=== PATIENT | female | born 1995 | race Hispanic/Latino ===

== ENCOUNTER 2022-09-16 04:50 | Inpatient (IN) | payer BC ==
[2022-09-16 05:20] VITALS: BMI 24.5
[2022-09-16] MEDS ORDERED: Bupivacaine PF 0.5% 30 ML VIAL ONE (08:00)
[2022-09-16] MEDS ORDERED: Lidocaine 2% PF 5 ML VIAL ONE (08:00)
[2022-09-16] MEDS ORDERED: Lactated Ringer's 1,000 ML IV PRN (08:32)
[2022-09-16] MEDS ORDERED: HYDROcodone/Acetaminophen 5/325 mg Tablet PO PRN ×2 (08:32)
[2022-09-16] MEDS ORDERED: Carboprost 250 MCG/ML AMP IM PRN (08:32)
[2022-09-16] MEDS ORDERED: Ondansetron PF 4 MG/2 ML Vial IVP PRN ×2 (08:32→19:13)
[2022-09-16] MEDS ORDERED: Methylergonovine 0.2 MG/ML VIAL IM PRN (08:32)
[2022-09-16] MEDS ORDERED: Butorphanol Tartrate 1 MG/ML VIAL SLOW IVP PRN (08:32)
[2022-09-16] MEDS ORDERED: Lidocaine 1% (PF) 30 ML VIAL SC PRN (08:32)
[2022-09-16] MEDS ORDERED: Misoprostol 200 MCG TAB PR PRN (08:32)
[2022-09-16] MEDS ORDERED: Ibuprofen 800 MG TAB PO PRN (08:32)
[2022-09-16] MEDS ORDERED: hydrALAZINE 20 MG/ML VIAL SLOW IVP PRN (08:32)
[2022-09-16] MEDS ORDERED: Promethazine HCl 25 MG/ML VIAL IM PRN ×2 (08:32→19:13)
[2022-09-16] MEDS ORDERED: Diphenoxylate HCl/Atropine Tablet PO PRN ×2 (08:32)
[2022-09-16] MEDS ORDERED: NS w/ Oxytocin 30 units 500 ML IV SCH (08:45)
[2022-09-16 09:31] LABS: Hemoglobin 11.2 g/dL (12.0-15.5); Mean Corpuscular HGB CONC 35.2 g/dL (32.0-36.0); Mean Corpuscular Hemoglobin 30.3 pg (27.0-33.0); Mean Corpuscular Volume 85.9 fl (81.6-98.3); Platelet Count 222 10x3/uL (150-450); RBC Distribution Width 12.6 % (11.5-14.5); White Blood Cell (WBC) Count 14.8 10x3/uL (3.5-10.5)
[2022-09-16 10:00] LABS: Syphilis Antibody Nonreactive (Nonreactive); Syphilis Antibody Index 0.04 S/CO (<1.00 Non-Reactive)
[2022-09-16 10:02] LABS: HBSAg Index 0.18 S/CO (0-0.99); Hep B Surf Ag Non-Reactive S/CO (NonReactive)
[2022-09-16 10:32] LABS: SARS-CoV-2 NAA Rapid Test Not Detected (NotDetected)
[2022-09-16] MEDS ORDERED: Fentanyl 2 mcg/Bup 0.1% Cadd 100 ML ONE (18:34)
[2022-09-16] MEDS ORDERED: ePHEDrine Sulfate 50 MG/10 ML VIAL SLOW IVP PRN (19:13)
[2022-09-16] MEDS ORDERED: Acetaminophen 325 MG TAB PO PRN (19:13)
[2022-09-16] MEDS ORDERED: Naloxone HCl 0.4 mg/ml Vial IVP PRN ×2 (19:13)
[2022-09-16] MEDS ORDERED: Lactated Ringer's 500 ML IV PRN (19:13)
[2022-09-16] MEDS ORDERED: diphenhydrAMINE 50 MG/ML VIAL IVP PRN (19:13)
[2022-09-16] MEDS ORDERED: Moisturizing Cream (Eucerin) 113 GM JAR TOP PRN (19:13)
[2022-09-16] MEDS ORDERED: Fentanyl 2 mcg/Bupivacaine 0.1% Cassette 100 ML EPIDURAL SCH (19:15)
[2022-09-16] MEDS ORDERED: Communication Order-Pharmacy FS SCH (19:15)
[2022-09-17] MEDS ORDERED: HYDROcodone/Acetaminophen 5/325 mg Tablet PO PRN ×2 (00:59)
[2022-09-17] MEDS ORDERED: Boostrix 0.5 ML (Tdap) VIAL (>/=7 yrs of age) IM ONE (00:59)
[2022-09-17] MEDS ORDERED: hydrALAZINE 20 MG/ML VIAL SLOW IVP PRN (00:59)
[2022-09-17] MEDS ORDERED: Milk Of Magnesia 30 ML UDCUP PO PRN (00:59)
[2022-09-17] MEDS ORDERED: Benzocaine-Menthol 82.5 ML CAN TOP PRN (00:59)
[2022-09-17] MEDS ORDERED: Misoprostol 200 MCG TAB VAG PRN (00:59)
[2022-09-17] MEDS ORDERED: diphenhydrAMINE 25 MG CAP PO PRN (00:59)
[2022-09-17] MEDS ORDERED: Bisacodyl 10 MG SUPP PR PRN (00:59)
[2022-09-17] MEDS ORDERED: NS w/ Oxytocin 30 units 500 ML IV SCH (01:00)
[2022-09-17] MEDS ORDERED: Ibuprofen 800 MG TAB PO SCH (06:00)
[2022-09-17] MEDS: Prenatal Vitamin 1 TAB PO SCH (09:19)
[2022-09-17] MEDS: Ibuprofen 800 MG TAB PO SCH ×2 (09:19→20:53)
[2022-09-17] MEDS: Docusate 100 MG CAP PO SCH ×2 (09:19→20:53)
[2022-09-17] MEDS: Ferrous Sulfate 325 MG TAB PO SCH (09:20)
[2022-09-18] MEDS: Ferrous Sulfate 325 MG TAB PO SCH ×2 (05:34→09:11)
[2022-09-18] MEDS: Ibuprofen 800 MG TAB PO SCH ×2 (06:38→09:11)
[2022-09-18] MEDS: Docusate 100 MG CAP PO SCH (09:12)
[2022-09-18] MEDS: Prenatal Vitamin 1 TAB PO SCH (09:12)
[2022-09-18 09:35] VITALS: BP 111/67; TEMP 97.3
== END 2022-09-18 14:20 | disposition home or self-care (01) | DRG 807 ==
LOC: CSHLD/OP 04:50 → CSHLD 10:42 → CSHPP 09-17 02:41
PROVIDERS: ADMIT Student in an Organized Health Care Education/Training Program; ATTEND Student in an Organized Health Care Education/Training Program
PROC: 10E0XZZ Delivery of Products of Conception, External Approach (ICD-10-PCS; principal; 2022-09-16)
PROC: 0KQM0ZZ Repair Perineum Muscle, Open Approach (ICD-10-PCS; 2022-09-16)
DX: O69.81X0 Labor and delivery complicated by cord around neck, without compression, not applicable or unspecified (principal); Z37.0 Single live birth; O70.1 Second degree perineal laceration during delivery; Z3A.39 39 weeks gestation of pregnancy; Z20.822 Contact with and (suspected) exposure to COVID-19
CPT/HCPCS: 51702; 85027; 86780; 86850; 86900; 86901; 87340; 99285; J2001; J2590; J7120; S0020; U0002